=== PATIENT | female | born 2005 | race Caucasian/White ===

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

== ENCOUNTER 2024-07-15 05:32 | Day surgery (SDC) | payer BC, SELFPAY ==
[2024-07-13 11:56] LABS: Absolute Eosinophils 0.1 K/uL (0-0.5); Absolute Lymphocytes (CBC) 2.8 K/uL (0.7-4.9); Absolute Monocytes 0.5 K/uL (0.1-1.3); Absolute Neutrophil 6.6 K/uL (1.8-8.0); Basophils % 0.4 % (0-1.3); Eosinophils % 0.9 % (0-4.4); Hematocrit 38.4 % (36.0-45.0); Hemoglobin 13.5 g/dL (12.0-15.0); Lymphocytes % 27.7 % (15.3-44.8); MCH 30.1 pg (27.0-35.0); MCHC 35.2 g/dL (32.0-36.0); MCV 85.7 fL (80-100); MPV 7.7 fL (7.6-11.3); Monocytes % 5.3 % (3.3-12.3); Neutrophils % 65.7 % (41.7-73.7); Platelets 437 thou/uL (152-406); RBC Red Blood Cell Count 4.48 M/uL (3.86-4.86)
[2024-07-15] MEDS: Ringers Lactate 1,000 ML IV ONE (06:17)
[2024-07-15] MEDS ORDERED: LIDOCAINE 1% 20 ML MDV ONE (06:19)
[2024-07-15] MEDS ORDERED: propofoL 200 MG/20 ML VIAL IV ONE (06:48)
[2024-07-15] MEDS ORDERED: LIDOCAINE 2% MPF 5 ML VIAL ONE (06:48)
[2024-07-15] MEDS ORDERED: ONDANSETRON 4 MG/2 ML VIAL ONE (06:48)
[2024-07-15] MEDS ORDERED: FENTANYL CITR 100 MCG/2 ML ONE (06:49)
[2024-07-15] MEDS ORDERED: MIDAZOLAM HCL 2 MG/2 ML INJ ONE (06:49)
[2024-07-15] MEDS ORDERED: CEFAZOLIN SODIUM 1 GM/VIAL ONE ×2 (07:44→07:45)
[2024-07-15] MEDS: CEFAZOLIN SODIUM 1 GM/VIAL ONE (07:45)
[2024-07-15] MEDS: MEPERIDINE HCL 25 MG/ML SYR ONE (08:28)
[2024-07-15 08:43] VITALS: O2SAT 99
--- NOTE | 2024-07-15 09:55 | RAD REPORT ---
EXAMINATION: XR Foot Left 2 View CLINICAL INDICATION: Female, 19 years old. [facility] MAIN FOREIGN BODY REMOVAL TECHNIQUE: 2 view radiographs of the left foot were obtained. COMPARISON: No prior exam. FINDINGS: No evidence of fracture or dislocation. Normal alignment. No evidence of arthropathy or oth er focal bone lesion. Triangular radiodense foreign body along the soft tissues of the lateral forefoot at the level of the metatarsophalangeal articulation is seen on the initial image, with post surgical changes and no residual hyperdense foreign body on the subsequent image. No significant degenerative changes. IMPRESSION: Successful removal of radiodense foreign body along the lateral forefoot, with no residual hyperdense component.
[2024-07-15 10:11] VITALS: BP 104/88; TEMP 98.2
== END 2024-07-15 09:53 | disposition home or self-care (01) ==
LOC: OR 05:32
PROVIDERS: ATTEND Podiatrist Foot & Ankle Surgery
PROC: 0HXNXZZ Transfer Left Foot Skin, External Approach (ICD-10-PCS; 2024-07-15)
PROC: 0JCR0ZZ Extirpation of Matter from Left Foot Subcutaneous Tissue and Fascia, Open Approach (ICD-10-PCS; principal; 2024-07-15 07:00)
DX: S91.342A Puncture wound with foreign body, left foot, initial encounter (principal); M60.272 Foreign body granuloma of soft tissue, not elsewhere classified, left ankle and foot; M67.472 Ganglion, left ankle and foot
CPT/HCPCS: 36415; 80048; 85025; 87070; 87075; 87205; 88305; A6456; J0690; J2003; J2175; J2250; J2405; J2704; J3010; J7120

== ENCOUNTER 2024-12-23 17:02 | Emergency (ER) | payer BC, OTHER ==
--- OUTSIDE RECORDS SUMMARY | 2024-12-23 17:23 | XMS REPORT | Continuity of Care Document ---
Author Name Unknown Address [address] [facility] [place] [address] [facility] Address [address] [facility] [address] [place] [address] Care Team Providers Care Machine Silk Screen Printer Name Role Phone Melly Frias MD Primary Care Physician [phone] Trini Andujar Attending Clinician [phone] Unknown, Attending Attending Clinician Unavailab Sheila Mosqueda DPM Attending Clinician + [phone] SHEILA GUERRERO Attending Clinician Unavail able Noris Rutherford MA Attending Clinician UnavailCourtney France Attending Clinician [phone] COURTNEY CRAWFORD Attending Clinician Unavailable Bobbi Palomo RN Attending Clinician UnavailSTANLEY Neville Attending Clinician Unavailable Stanley Johnston DO Attending Clinician [phone] MAHIN ADWKINS Attending Clinician Unavailable Doctor Unassigned, [place] Attending Clinician U Melly Mattson MD Attending Clinician MELLY FRIAS Attending Clinician Unavailable Lab, Adc Fam Pob I Attending Clinician Unavailab JULIETTE Atkinson Attending Clinician Unavailable Provider, [facility] Attending Clinician Un available Juliette Verdin Attending Clinician [phone] Manjula France MA Attending Clinician Unavail able Only, Adc Test Attending Clinician Unavailable Surendra Norris MD Attending Clinician [phone] Rigo Hall MD Attending Clinician [phone] Unknown, Attending Attending Clinician Unavailab DOMINIC Nance Attending Clinician Unavaila STANLEY Man Admitting Clinician Unavailable Payers Payer Name Policy Type Policy Number Effective Date Expirati on Date Source [facility] [id number] 2013 00:00:00 [employer] [id number] 2021 00:00:00 Problems Condition Name Condition Details Condition Category Status Onset Date Resolution Date Last Treatment Date Treating Clinician Comments Source No known active problems No known active problems Disease [facility] Allergies, Adverse Reactions, Alerts Allergy Name Allergy Type Status Severity Reaction(s) Onset Date Inactive Date Treating Clinician Comments Source Red Dye #40 (Allura Red) Propensi ty to adverse reaction s Active 310 00:00: 00 Norman Barreto RED DYE DRUG INGREDI Active Hives 2022-04 00:00: 00 [facility] Red Dye Propensi ty to adverse reaction s Active Hives 2022-04 00:00: 00 [facility] NO KNOWN ALLERGIE S Drug Class Active [facility] Social History Social Habit Start Date Stop Date Quantity Comments Source Gender identity 2023-06-22 23:11:09 Identifies as female gender (finding) Norm Barreto ASSERTION Not [facility] History SDOH Alcohol Std Drinks [facility] History SDOH Alcohol Binge [facility] Sexual orientation Ly Barreto Alcoholic beverage intake 2024-12-21 00:00:00 2024-12-21 00:00:00 Lifetime non-drinker (finding) [facility] Alcohol intake 2023-03-14 00:00:00 2023-03-14 00:00:00 Lifetime non-drinker (finding) [facility] Exposure to SARS-CoV-2 (event) 2022-03-19 00:00:00 2022-03-29 13:19:00 Not sure [facility] History of Social function 2022-03-29 00:00:00 2022-03-29 00:00:00 [facility] Tobacco use and exposure 2022-03-29 00:00:00 2022-03-29 00:00:00 Smokeless tobacco non-user [facility] History SDOH Alcohol Frequency 2020-07-19 00:00:00 2020-07-19 00:00:00 1 [facility] Sex assigned at 2004 00:00:00 2005 00:00:00 [facility] Smoking Status Start Date Stop Date Source Tobacco smoking consumption unknown [facility] c Never smoked tobacco [facility] Medications Ordered Medication Name Filled Medication Name Start Date Stop Date Current Medication? Ordering Clinician Indication Dosage Frequency Signature (SIG) Comments Components Source dexAMETHaso ne (DECADRON) 10 mg/mL injection 10 mg 12-21 19:00: 00 12-21 18:31 :00 No [id number] 10mg 10 mg, Intramuscu lar, ONCE, 1 dose, On Sat12/21/24 at 1400, Routine [facility] ketorolac (TORADOL) 30 mg/mL (1 mL) injection 30 mg 12-21 19:00: 00 12-21 18:21 :00 No [id number] 30mg 30 mg, Intramuscu lar, ONCE, 1 dose, On Sat12/21/24 at 1400, Routine [facility] cephalexin (Keflex) 500 MG capsule cephalexin (Keflex) 500 MG capsule 19 00:00: 00 07-01 23:59 :00 No 500mg Q.5D Take 1 capsule by mouth in the morning and 1 capsule in the evening. Do all this for 14 days. Starting after surgery, to reduce the risk of postoperat lindsay infection. [facility] HYDROcodone -acetaminop hen ([place]) 10-325 MG tablet HYDROcodone -acetaminop hen ([place]) 10-325 MG tablet - 00:00: 00 06-24 23:59 :00 No [id number] 1{tbl} Q6H Take 1 tablet by mouth every 6 hours if needed for severe pain (7-10) for up to 7 days. Only take if needed for pain after surgery [facility] cephALEXin 500 mg capsule 2023-04- 00:00: 00 03-15 05:59 :00 No [id number] 500mg Take 1 capsule by mouth in the morning and 1 capsule at noon and 1 capsule in the evening. Do all this for 10 days. [facility] ketorolac (TORADOL) injection 15 mg 2022-04 06:00: 00 03-16 05:59 :00 No 15mg 15 mg, Slow IV Push, Q6H, 4 doses, First dose on Sat03/15/23 at 0000, Last dose on Sat03/15/23 at 1800, Routine [facility] NaCl 0.9% (NS) bolus infusion 1,000 mL 2022-04 02:45: 00 03-15 03:01 :00 No 1000mL at 999 mL/hr, 1,000 mL, IV Piggyback, ONCE, 1 dose, On [facility] 03/14/23 at 2045, STAT [facility] ondansetron (ZOFRAN (PF)) injection 4 mg 2022-04 01:45: 00 03-15 02:07 :00 No 4mg 4 mg, Slow IV Push, ONCE, 1 dose, On Sarahi 03/14/23 at 1945, Routine [facility] ibuprofen (ADVIL) 200 mg tablet 07-19 14:14: 53 Yes 200mg Take 200 mg by mouth every 6 (six) hours as needed. [facility] ibuprofen (ADVIL) 200 mg tablet 07-19 09:14: 53 Yes 200mg Take 200 mg by mouth every 6 (six) hours as needed. [facility] naproxen (NAPROSYN) 500 mg tablet 07-19 00:00: 00 Yes [id number] 500mg Take 1 tablet by mouth 2 (two) times daily with meals. [facility] fluticasone propionate 50 mcg/actuati on nasal spray 2018-04 00:00: 00 Yes [id number] 2{spray } Use 2 Sprays in each nostril daily. [facility] bromphenira mine-pseudo ephedrine-D M (BROMFED DM) 2-30-10 mg/5 mL syrup 2018-04 00:00: 00 Yes [id number] 5mL Take 5 mL by mouth 4 (four) times daily as needed for Congestion /Allergies or Cold symptoms. [facility] No known medications No Un kelli [facility] No known medications No Un kelli [facility] Immunizations Ordered Immunization Name Filled Immunization Name Date Status Comments Source Flu Injectable MDCK Quadrivalent 2022-01-08 00:00:00 Completed [facility] Flu Injectable MDCK Quadrivalent 2022-01-08 00:00:00 Completed [facility] Flu Injectable MDCK Quadrivalent 2022-01-08 00:00:00 Completed [facility] Flu Injectable MDCK Quadrivalent 2022-01-08 00:00:00 Completed Influenza Virus Vaccine Quad .5 mL IM 6+ MO 2021-01-20 00:00:00 Completed [facility] Influenza Virus Vaccine Quad .5 mL IM 6+ MO 2021-01-20 00:00:00 Completed [facility] Influenza Virus Vaccine Quad .5 mL IM 6+ MO 2021-01-20 00:00:00 Completed [facility] Influenza Virus Vaccine Quad .5 mL IM 6+ MO 2021-01-20 00:00:00 Completed [facility] Influenza Virus Vaccine Quad .5 mL IM 6+ MO (FLUZONE/FLULAVAL/FL UARIX) 2021-01-20 00:00:00 Completed Meningococcal Polysaccharide (groups A, C, Y and W-135) conjugate vaccine (MCV4P) 2020-07-19 00:00:00 Completed [facility] Meningococcal Polysaccharide (groups A, C, Y and W-135) conjugate vaccine (MCV4P) 2020-07-19 00:00:00 Completed [facility] Meningococcal Polysaccharide (groups A, C, Y and W-135) conjugate vaccine (MCV4P) 2020-07-19 00:00:00 Completed [facility] Meningococcal Polysaccharide (groups A, C, Y and W-135) conjugate vaccine (MCV4P) 2020-07-19 00:00:00 Completed [facility] Meningococcal Polysaccharide (groups A, C, Y and W-135) conjugate vaccine (MCV4P) 2020-07-19 00:00:00 Completed [facility] Meningococcal Polysaccharide (groups A, C, Y and W-135) conjugate vaccine (MCV4P) 2020-07-19 00:00:00 Completed [facility] Meningococcal Polysaccharide (groups A, C, Y and W-135) conjugate vaccine (MCV4P) 2020-07-19 00:00:00 Completed [facility] Meningococcal Polysaccharide (groups A, C, Y and W-135) conjugate vaccine (MCV4P) 2020-07-19 00:00:00 Completed [facility] Meningococcal Polysaccharide (groups A, C, Y and W-135) conjugate vaccine (MCV4P) 2020-07-19 00:00:00 Completed [facility] Influenza Virus Vaccine Quad IM, Preserv and ABX Free 6 MO-64 YRS 2019-01-11 00:00:00 Completed [facility] Influenza Virus Vaccine Quad IM, Preserv and ABX Free 6 MO-64 YRS 2019-01-11 00:00:00 Completed [facility] Influenza Virus Vaccine Quad IM, Preserv and ABX Free 6 MO-64 YRS 2019-01-11 00:00:00 Completed [facility] Influenza Virus Vaccine Quad IM, Preserv and ABX Free 6 MO-64 YRS 2019-01-11 00:00:00 Completed [facility] Influenza Virus Vaccine Quad IM, Preserv and ABX Free 6 MO-64 YRS (FLUCELVAX) 2019-01-11 00:00:00 Completed TDAP 2016-11-14 00:00:00 Completed [facility] Meningococcal Polysaccharide (groups A, C, Y and W-135) conjugate vaccine (MCV4P) 2016-11-14 00:00:00 Completed [facility] HPV9 2016-11-14 00:00:00 Completed [facility] TDAP 2016-11-14 00:00:00 Completed [facility] Meningococcal Polysaccharide (groups A, C, Y and W-135) conjugate vaccine (MCV4P) 2016-11-14 00:00:00 Completed [facility] HPV9 2016-11-14 00:00:00 Completed [facility] TDAP 2016-11-14 00:00:00 Completed [facility] Meningococcal Polysaccharide (groups A, C, Y and W-135) conjugate vaccine (MCV4P) 2016-11-14 00:00:00 Completed [facility] HPV9 2016-11-14 00:00:00 Completed [facility] TDAP 2016-11-14 00:00:00 Completed [facility] Meningococcal Polysaccharide (groups A, C, Y and W-135) conjugate vaccine (MCV4P) 2016-11-14 00:00:00 Completed [facility] HPV9 2016-11-14 00:00:00 Completed [facility] TDAP 2016-11-14 00:00:00 Completed Meningococcal Polysaccharide (groups A, C, Y and W-135) conjugate vaccine (MCV4P) 2016-11-14 00:00:00 Completed HPV9 2016-11-14 00:00:00 Completed Varicella (varivax)(chicken pox) 2009-11-16 00:00:00 Completed [facility] Varicella (varivax)(chicken pox) 2009-11-16 00:00:00 Completed [facility] Varicella (varivax)(chicken pox) 2009-11-16 00:00:00 Completed [facility] Varicella (varivax)(chicken pox) 2009-11-16 00:00:00 Completed [facility] Varicella (varivax)(chicken pox) 2009-11-16 00:00:00 Completed [facility] MMR 2008-10-13 00:00:00 Completed [facility] Pentacel (dtap,ipv,hib) 2008-10-13 00:00:00 Completed [facility] MMR 2008-10-13 00:00:00 Completed [facility] Pentacel (dtap,ipv,hib) 2008-10-13 00:00:00 Completed [facility] MMR 2008-10-13 00:00:00 Completed [facility] Pentacel (dtap,ipv,hib) 2008-10-13 00:00:00 Completed [facility] MMR 2008-10-13 00:00:00 Completed [facility] Pentacel (dtap,ipv,hib) 2008-10-13 00:00:00 Completed [facility] MMR 2008-10-13 00:00:00 Completed Pentacel (dtap,ipv,hib) 2008-10-13 00:00:00 Completed HEPATITIS A 2007-02-13 00:00:00 Completed [facility] HEPATITIS A 2007-02-13 00:00:00 Completed [facility] HEPATITIS A 2007-02-13 00:00:00 Completed [facility] HEPATITIS A 2007-02-13 00:00:00 Completed [facility] HEPATITIS A 2007-02-13 00:00:00 Completed Pneumococcal 7 Conjugate, PCV7 (Prevnar7) 2006-03-28 00:00:00 Completed [facility] MMR 2006-03-28 00:00:00 Completed [facility] HIB 4 Dose Schedule 2006-03-28 00:00:00 Completed [facility] HEPATITIS A 2006-03-28 00:00:00 Completed [facility] DTaP, Unspecified Formulation 2006-03-28 00:00:00 Completed [facility] Pneumococcal 7 Conjugate, PCV7 (Prevnar7) 2006-03-28 00:00:00 Completed [facility] MMR 2006-03-28 00:00:00 Completed [facility] HIB 4 Dose Schedule 2006-03-28 00:00:00 Completed [facility] HEPATITIS A 2006-03-28 00:00:00 Completed [facility] DTaP, Unspecified Formulation 2006-03-28 00:00:00 Completed [facility] Pneumococcal 7 Conjugate, PCV7 (Prevnar7) 2006-03-28 00:00:00 Completed [facility] MMR 2006-03-28 00:00:00 Completed [facility] HIB 4 Dose Schedule 2006-03-28 00:00:00 Completed [facility] HEPATITIS A 2006-03-28 00:00:00 Completed [facility] DTaP, Unspecified Formulation 2006-03-28 00:00:00 Completed [facility] Pneumococcal 7 Conjugate, PCV7 (Prevnar7) 2006-03-28 00:00:00 Completed [facility] MMR 2006-03-28 00:00:00 Completed [facility] HIB 4 Dose Schedule 2006-03-28 00:00:00 Completed [facility] HEPATITIS A 2006-03-28 00:00:00 Completed [facility] DTaP, Unspecified Formulation 2006-03-28 00:00:00 Completed [facility] Pneumococcal 7 Conjugate, PCV7 (Prevnar7) 2006-03-28 00:00:00 Completed MMR 2006-03-28 00:00:00 Completed HIB 4 Dose Schedule 2006-03-28 00:00:00 Completed HEPATITIS A 2006-03-28 00:00:00 Completed DTaP, Unspecified Formulation 2006-03-28 00:00:00 Completed Varicella (varivax)(chicken pox) 2005-08-01 00:00:00 Completed [facility] Varicella (varivax)(chicken pox) 2005-08-01 00:00:00 Completed [facility] Varicella (varivax)(chicken pox) 2005-08-01 00:00:00 Completed [facility] Varicella (varivax)(chicken pox) 2005-08-01 00:00:00 Completed [facility] Varicella (varivax)(chicken pox) 2005-08-01 00:00:00 Completed Pneumococcal 7 Conjugate, PCV7 (Prevnar7) 2005-01-17 00:00:00 Completed [facility] HIB 4 Dose Schedule 2005-01-17 00:00:00 Completed [facility] Pediarix (dtap/hep B/ipv) 2005-01-17 00:00:00 Completed [facility] Pneumococcal 7 Conjugate, PCV7 (Prevnar7) 2005-01-17 00:00:00 Completed [facility] HIB 4 Dose Schedule 2005-01-17 00:00:00 Completed [facility] Pediarix (dtap/hep B/ipv) 2005-01-17 00:00:00 Completed [facility] Pneumococcal 7 Conjugate, PCV7 (Prevnar7) 2005-01-17 00:00:00 Completed [facility] HIB 4 Dose Schedule 2005-01-17 00:00:00 Completed [facility] Pediarix (dtap/hep B/ipv) 2005-01-17 00:00:00 Completed [facility] Pneumococcal 7 Conjugate, PCV7 (Prevnar7) 2005-01-17 00:00:00 Completed [facility] HIB 4 Dose Schedule 2005-01-17 00:00:00 Completed [facility] Pediarix (dtap/hep B/ipv) 2005-01-17 00:00:00 Completed [facility] Pneumococcal 7 Conjugate, PCV7 (Prevnar7) 2005-01-17 00:00:00 Completed HIB 4 Dose Schedule 2005-01-17 00:00:00 Completed Pediarix (dtap/hep B/ipv) 2005-01-17 00:00:00 Completed Pneumococcal 7 Conjugate, PCV7 (Prevnar7) 2004 00:00:00 Completed [facility] HIB 4 Dose Schedule 2004 00:00:00 Completed [facility] Pediarix (dtap/hep B/ipv) 2004 00:00:00 Completed [facility] Pneumococcal 7 Conjugate, PCV7 (Prevnar7) 2004 00:00:00 Completed [facility] HIB 4 Dose Schedule 2004 00:00:00 Completed [facility] Pediarix (dtap/hep B/ipv) 2004 00:00:00 Completed [facility] Pneumococcal 7 Conjugate, PCV7 (Prevnar7) 2004 00:00:00 Completed [facility] HIB 4 Dose Schedule 2004 00:00:00 Completed [facility] Pediarix (dtap/hep B/ipv) 2004 00:00:00 Completed [facility] Pneumococcal 7 Conjugate, PCV7 (Prevnar7) 2004 00:00:00 Completed [facility] HIB 4 Dose Schedule 2004 00:00:00 Completed [facility] Pediarix (dtap/hep B/ipv) 2004 00:00:00 Completed [facility] Pneumococcal 7 Conjugate, PCV7 (Prevnar7) 2004 00:00:00 Completed HIB 4 Dose Schedule 2004 00:00:00 Completed Pediarix (dtap/hep B/ipv) 2004 00:00:00 Completed Pneumococcal 7 Conjugate, PCV7 (Prevnar7) 2004 00:00:00 Completed [facility] HIB 4 Dose Schedule 2004 00:00:00 Completed [facility] Pediarix (dtap/hep B/ipv) 2004 00:00:00 Completed [facility] Pneumococcal 7 Conjugate, PCV7 (Prevnar7) 2004 00:00:00 Completed [facility] HIB 4 Dose Schedule 2004 00:00:00 Completed [facility] Pediarix (dtap/hep B/ipv) 2004 00:00:00 Completed [facility] Pneumococcal 7 Conjugate, PCV7 (Prevnar7) 2004 00:00:00 Completed [facility] HIB 4 Dose Schedule 2004 00:00:00 Completed [facility] Pediarix (dtap/hep B/ipv) 2004 00:00:00 Completed [facility] Pneumococcal 7 Conjugate, PCV7 (Prevnar7) 2004 00:00:00 Completed [facility] HIB 4 Dose Schedule 2004 00:00:00 Completed [facility] Pediarix (dtap/hep B/ipv) 2004 00:00:00 Completed [facility] Pneumococcal 7 Conjugate, PCV7 (Prevnar7) 2004 00:00:00 Completed HIB 4 Dose Schedule 2004 00:00:00 Completed Pediarix (dtap/hep B/ipv) 2004 00:00:00 Completed Meningococcal Polysaccharide (groups A, C, Y and W-135) conjugate vaccine (MCV4P) Unknown Completed [facility] Varicella (varivax)(chicken pox) Unknown Completed [facility] TDAP Unknown Completed [facility] Pneumococcal 7 Conjugate, PCV7 (Prevnar7) Unknown Completed [facility] MMR Unknown Completed [facility] HPV9 Unknown Completed [facility] HIB 4 Dose Schedule Unknown Completed [facility] HEPATITIS A Unknown Completed [facility] Influenza Virus Vaccine Quad .5 mL IM 6+ MO (FLUZONE/FLULAVAL/FL UARIX) Unknown Completed [facility] Flu Injectable MDCK Quadrivalent Unknown Completed [facility] Influenza Virus Vaccine Quad IM, Preserv and ABX Free 6 MO-64 YRS (FLUCELVAX) Unknown Completed [facility] Pentacel (dtap,ipv,hib) Unknown Completed [facility] Pediarix (dtap/hep B/ipv) Unknown Completed [facility] DTaP, Unspecified Formulation Unknown Completed [facility] Vital Signs Vital Name Observation Time Observation Value Comments S ource Systolic blood pressure 2024-12-21 17:45:00 122 mm[Hg] [facility] Diastolic blood pressure 2024-12-21 17:45:00 82 mm[Hg] [facility] Heart rate 2024-12-21 17:43:00 95 /min [facility] Body temperature 2024-12-21 17:43:00 36.83 Coleen [facility] Body height 2024-12-21 17:43:00 167.6 cm [facility] Body weight 2024-12-21 17:43:00 92.443 kg [facility] BMI 2024-12-21 17:43:00 32.89 kg/m2 [facility] Oxygen saturation in Arterial blood by Pulse oximetry 2024-12-21 17:43:00 97 /min [facility] Systolic blood pressure 2024-03-04 23:10:00 127 mm[Hg] [facility] Diastolic blood pressure 2024-03-04 23:10:00 75 mm[Hg] [facility] Heart rate 2024-03-04 23:10:00 89 /min [facility] Body temperature 2024-03-04 23:10:00 36.78 Coleen [facility] Body height 2024-03-04 23:10:00 167.6 cm [facility] Body weight 2024-03-04 23:10:00 92.126 kg [facility] BMI 2024-03-04 23:10:00 32.78 kg/m2 [facility] Oxygen saturation in Arterial blood by Pulse oximetry 2024-03-04 23:10:00 98 /min [facility] Systolic blood pressure 2023-03-15 03:02:00 127 mm[Hg] [facility] Diastolic blood pressure 2023-03-15 03:02:00 88 mm[Hg] [facility] Heart rate 2023-03-15 03:02:00 85 /min [facility] Respiratory rate 2023-03-15 03:02:00 18 /min [facility] Oxygen saturation in Arterial blood by Pulse oximetry 2023-03-15 03:02:00 100 /min [facility] Body temperature 2023-03-15 01:35:00 37.83 Coleen [facility] Body height 2023-03-15 01:35:00 167.6 cm [facility] Body weight 2023-03-15 01:35:00 79.379 kg [facility] BMI 2023-03-15 01:35:00 28.25 kg/m2 [facility] Body mass index (BMI) [Percentile] Per age and sex 2023-03-15 01:35:00 91.48 % [facility] Systolic blood pressure 2022-03-29 19:19:00 115 mm[Hg] [facility] Diastolic blood pressure 2022-03-29 19:19:00 77 mm[Hg] [facility] Heart rate 2022-03-29 19:19:00 54 /min [facility] Body height 2022-03-29 19:19:00 167.6 cm [facility] Body weight 2022-03-29 19:19:00 80.65 kg [facility] BMI 2022-03-29 19:19:00 28.70 kg/m2 [facility] Body mass index (BMI) [Percentile] Per age and sex 2022-03-29 19:19:00 93.21 % [facility] Oxygen saturation in Arterial blood by Pulse oximetry 2022-03-29 19:19:00 100 /min [facility] Systolic blood pressure 2020-08-10 13:58:00 92 mm[Hg] [facility] Diastolic blood pressure 2020-08-10 13:58:00 68 mm[Hg] [facility] Heart rate 2020-08-10 13:58:00 76 /min [facility] Body height 2020-08-10 13:58:00 165.1 cm [facility] Body weight 2020-08-10 13:58:00 82.373 kg [facility] BMI 2020-08-10 13:58:00 30.22 kg/m2 [facility] Oxygen saturation in Arterial blood by Pulse oximetry 2020-08-10 13:58:00 99 /min [facility] Systolic blood pressure 2020-07-19 14:04:00 102 mm[Hg] [facility] Diastolic blood pressure 2020-07-19 14:04:00 60 mm[Hg] [facility] Heart rate 2020-07-19 14:04:00 78 /min [facility] Body weight 2020-07-19 14:04:00 83.008 kg [facility] Oxygen saturation in Arterial blood by Pulse oximetry 2020-07-19 14:04:00 99 /min [facility] Systolic blood pressure 2020-06-23 20:59:00 117 mm[Hg] [facility] Diastolic blood pressure 2020-06-23 20:59:00 78 mm[Hg] [facility] Heart rate 2020-06-23 20:59:00 71 /min [facility] Body temperature 2020-06-23 20:59:00 37.17 Coleen [facility] Respiratory rate 2020-06-23 20:59:00 18 /min [facility] Body height 2020-06-23 20:59:00 165.1 cm [facility] Body weight 2020-06-23 20:59:00 80.74 kg [facility] BMI 2020-06-23 20:59:00 29.62 kg/m2 [facility] Oxygen saturation in Arterial blood by Pulse oximetry 2020-06-23 20:59:00 98 /min [facility] Systolic blood pressure 2018-11-29 17:47:00 124 mm[Hg] [facility] Diastolic blood pressure 2018-11-29 17:47:00 74 mm[Hg] [facility] Heart rate 2018-11-29 17:47:00 79 /min [facility] Body temperature 2018-11-29 17:47:00 36.44 Coleen [facility] Respiratory rate 2018-11-29 17:47:00 17 /min [facility] Body height 2018-11-29 17:47:00 162.6 cm [facility] Body weight 2018-11-29 17:47:00 73.12 kg [facility] BMI 2018-11-29 17:47:00 27.67 kg/m2 [facility] Oxygen saturation in Arterial blood by Pulse oximetry 2018-11-29 17:47:00 100 /min [facility] Systolic blood pressure 2018-11-29 17:47:00 124 mm[Hg] [facility] Diastolic blood pressure 2018-11-29 17:47:00 74 mm[Hg] [facility] Heart rate 2018-11-29 17:47:00 79 /min [facility] Body temperature 2018-11-29 17:47:00 36.44 Coleen [facility] Respiratory rate 2018-11-29 17:47:00 17 /min [facility] Body height 2018-11-29 17:47:00 162.6 cm [facility] Body weight 2018-11-29 17:47:00 73.12 kg [facility] BMI 2018-11-29 17:47:00 27.67 kg/m2 [facility] Oxygen saturation in Arterial blood by Pulse oximetry 2018-11-29 17:47:00 100 /min [facility] Procedures Procedure Date / Time Performed Performing Clinician Source HCG TOTAL (QUANTITATIVE) 2024-06-08 11:16:00 Tee Guerrero [facility] COMP. METABOLIC PANEL (34047) 2023-03-15 02:02:00 Stanley Johnston [facility] CBC WITH DIFF 2023-03-15 02:02:00 Stanley Johnston [facility] POCT TEST 2023-03-15 01:49:00 Sandy Johnston [facility] URINALYSIS 2023-03-15 01:48[facility] 2023-03-15 01:21:58 Doctor Unassigned, Ripley [facility] INSURANCE CORRESPONDENCE 2022-04-28 06:01:00 Doc tor Unassigned, Ripley [facility] CONSENT/REFUSAL FOR DIAGNOSIS AND TREATMENT 2022-03-29 19:22:00 Doctor Unassigned, Ripley [facility] MEDICATION CORRESPONDENCE 2021-04-12 06:01:00 Do ctor Unassigned, Ripley [facility] XR WRIST 3+ VW RIGHT 2020-07-19 15:19:[address] [facility] MENACTRA (MCV4-D) VACCINE 2020-07-19 14:37:58 Melly Frias [facility] ASSIGNMENT OF BENEFITS 2020-01-25 13:19:45 Docto r Unassigned, Ripley [facility] CONSENT/REFUSAL FOR DIAGNOSIS AND TREATMENT 2018-11-29 17:29:33 Doctor Unassigned, Ripley [facility] Encounters Start Date/Time End Date/Time Encounter Type Admission Type Attending [facility] Care Facility Care Department Encounter ID Source 2024-12-21 12:00:00 2024-12-21 13:31:12 Urgent Care R Trini Napier Unknown, Attending [facility] 1.2.840.114 350.1.13.10 4.2.7.2.686 [id number] [facility] 2024-08-26 14:30:00 2024-08-26 15:39:02 Office Visit Selbst, Sheila [facility] 1.2.840.114 350.1.13.70 8.2.7.2.686 [id number] [facility] 2024-08-26 14:13:52 2024-08-26 15:39:02 Outpatient Elective SELBST, SHEILA MONTEIRO MHEOUT [id number] EOUT 2024-07-07 00:00:00 2024-08-07 23:53:31 Telephone Rutherford, Noris Rutherford, Noris [facility] 1.2.840.114 350.1.13.70 8.2.7.2.686 [id number] [facility] 2024-07-29 11:20:00 2024-07-29 12:09:48 Office Visit Selbst, Sheila [facility] 1.2.840.114 350.1.13.70 8.2.7.2.686 [id number] [facility] 2024-07-29 10:44:39 2024-07-29 12:09:48 Outpatient Elective SELBST, SHEILA MONTEIRO EOUT [id number] [facility] 2024-07-22 10:18:49 2024-07-22 11:14:22 Outpatient Elective SELBST, SHEILA MONTEIRO MHEOUT [id number] EOUT 2024-07-22 10:20:00 2024-07-22 10:30:00 Office Visit SelbstSheila [facility] 1.2.840.114 350.1.13.70 8.2.7.2.686 [id number] [facility] 2024-07-15 08:15:37 2024-07-15 08:15:47 Outpatient Elective SELBST, SHEILA GRECOOUT MHEOUT [id number] EOUT 2024-07-15 07:00:00 2024-07-15 08:15:47 Outside Procedure SelnhantSheila [facility] 1.20.114 350.1.13.70 8.2.7.2.686 [id number] [facility] 2024-06-17 11:00:29 2024-06-17 12:14:08 Outpatient Elective [facility]EL[facility]STSHEIL[facility] [id number] [facility] 2024-06-17 11:00:00 2024-06-17 11:10:00 Office Visit YolandaSheila [facility] 1.0.114 350.1.13.70 8.2.7.2.686 [id number] [facility] 2024-06-08 00:00:00 2024-06-09 01:27:49 Orders Only Micheal Guerreroian Ron [facility] 1.114 350.1.13.70 8.2.7.2.686 [id number] [facility] 2024-06-08 09:50:00 2024-06-08 10:41:14 Consult YolandaSheila [facility] 1.2840.114 350.1.13.70 8.2.7.2.686 [id number] [facility] 2024-06-08 09:27:37 2024-06-08 10:41:14 Outpatient Elective SELBSTSHEILA HARJINDER MHEOUT [id number] [facility] 2024-03-04 16:20:00 2024-03-04 16:40:00 Urgent Care Courtney Crawford Unknown, Attending [facility] 1.84.114 350.1.13.10 4.2.7.2.686 [id number] [facility] 2024-03-04 16:20:00 2024-03-04 16:20:00 Outpatient R COURTNEY CRAWFORD [facility] [id number] [facility] 2024-03-04 00:00:00 2024-03-04 11:51:32 Nurse Triage Bobbi Palomo Wendy [facility] 1.840.114 350.1.13.10 4.2.7.2.686 [id number] [facility] 2023-03-14 19:37:00 2023-03-14 21:22:00 Emergency X SINGER STANLEY [facility] ERT [id number] [facility] 2023-03-14 19:37:00 2023-03-14 21:22:00 Emergency Stanley Johnston [facility] 1.840.114 350.1.13.10 4.2.7.2.686 [id number] [facility] 2022-04-28 00:00:00 2022-04-28 00:00:00 Orders Only Doctor Unassigned, Ripley [facility] 1.2840.114 350.1.13.10 4.2.7.2.686 [id number] [facility] 2022-03-29 13:30:00 2022-03-29 13:45:00 Office Visit Melly Frias [facility] 1.2840.114 350.1.13.10 4.2.7.2.686 [id number] [facility] 2022-03-29 13:30:00 2022-03-29 13:30:00 Outpatient R MELLY FRIAS [facility] [id number] [facility] 2022-03-29 00:00:00 2022-03-29 00:00:00 Orders Only Doctor Unassigned, [place]y [facility] 1.2.840.114 350.1.13.10 4.2.7.2.686 [id number] [facility] 2021-04-12 00:00:00 2021-04-12 00:00:00 Orders Only Doctor Unassigned, [place]ipley [facility] 1.2.840.114 350.1.13.10 4.2.7.2.686 [id number] [facility] 2020-08-10 09:23:22 2020-08-10 09:43:22 Lens Polisher Hand Visit Lab, Adc [facility] Pob I Daniel [facility] Office Building One 1.2840.114 350.1.13.10 4.2.7.2.686 [id number] [facility] 2020-08-10 08:36:09 2020-08-10 09:06:09 Office Visit Melly Frias [facility] Office Building One 1.2840.114 350.1.13.10 4.2.7.2.686 [id number] [facility] 2020-08-10 09:00:00 2020-08-10 09:00:00 Outpatient MELLY COOLEY [facility] [id number] [facility] 2020-07-19 10:03:41 2020-07-19 23:59:00 Hospital Encounter Melly Frias [facility] 1.2840.114 350.1.13.10 4.2.7.2.686 [id number] [facility] 2020-07-19 09:30:00 2020-07-19 09:30:00 Outpatient MELLY COOLEY [facility] [id number] [facility] 2020-07-19 09:00:14 2020-07-19 09:15:14 Office Visit Daniel [facility] 1..114 350.1.13.10 4.2.7.2.686 [id number] [facility] 2020-07-11 00:00:00 2020-07-11 00:00:00 Telephone Melly Frias [facility] Office [facility] 1.0.114 350.1.13.10 4.2.7.2.686 [id number] [facility] 2020-06-23 16:20:00 2020-06-23 16:20:00 Outpatient R JULIETTE CROWELL [facility] [id number] [facility] 2020-06-23 15:46:09 2020-06-23 16:16:49 Urgent Care Provider, [facility] Urgent Care Juliette Crowell [facility] Office [facility] One .114 350.1.13.10 4.2.7.2.686 [id number] [facility] 2020-01-30 00:00:00 2020-01-30 00:00:00 Letter (Out) Manjula France [facility] Office [facility] One 1..114 350.1.13.10 4.2.7.2.686 [id number] [facility] 2020-01-30 00:00:00 2020-01-30 00:00:00 Letter (Out) Manjula France [facility] Office Building One ..114 350.1.13.10 4.2.7.2.686 [id number] 2020-01-25 08:22:42 2020-01-25 08:37:42 Laboratory Only Only, Adc Test Surendra Norris [facility] 1.0.114 350.1.13.10 4.2.7.2.686 [id number] [facility] 2020-01-25 08:22:42 2020-01-25 08:37:42 Laboratory Only Only, Adc Test [facility] 1.2.840.114 350.1.13.10 4.2.7.2.686 [id number] 2020-01-25 08:15:00 2020-01-25 08:15:00 Outpatient R [facility] [id number] [facility] 2020-01-25 00:00:00 2020-01-25 00:00:00 Orders Only Doctor Unassigned, Ripley [facility] 1.2.840.114 350.1.13.10 4.2.7.2.686 [id number] [facility] 2020-01-25 00:00:00 2020-01-25 00:00:00 Orders Only Doctor Unassigned, [place]ipley [facility] 1.2.840.114 350.1.13.10 4.2.7.2.686 [id number] 2018-11-29 12:31:00 2018-11-29 12:46:00 Urgent Care Rigo Hall E Unknown, Attending [facility] 1.2.840.114 350.1.13.10 4.2.7.2.686 [id number] [facility] 2018-11-29 12:31:00 2018-11-29 12:46:00 Urgent Care Rigo Hall [facility] 1.2.840.114 350.1.13.10 4.2.7.2.686 [id number] 2018-11-29 00:00:00 2018-11-29 00:00:00 Orders Only Doctor Unassigned, [place]ipley [facility] 1.2.840.114 350.1.13.10 4.2.7.2.686 [id number] [facility] 2018-11-29 00:00:00 2018-11-29 00:00:00 Orders Only Doctor Unassigned, [place]y [facility] 1.2.840.114 350.1.13.10 4.2.7.2.686 [id number] 2013-12-21 20:48:17 2013-12-21 22:11:00 Emergency X DOMINIC STALLWORTH [facility] [id number] [facility] Results Test Description Test Time Test Comments Results Resul t Comments Source HCG TOTAL (QUANTITATIVE) 2024-06-09 01:26:19 hCG Tot<5mIU/mL2024 1:21 AM CDTQUEST [facility]AG[facility] [id number] 02:29:27* Test Item Value Reference Range Interpretation Comme nts WBC (test code = 6690-2) 11.09 See_Comment [Automated messa ge] The system which generated this result transmitted reference range: 4.50 - 13.50 10*3/?L. The reference range was not used to interpret this result as normal/abnormal. RBC (test code = 789-8) 4.34 See_Comment [Automated messa ge] The system which generated this result transmitted reference range: 4.10 - 5.10 10*6/?L. The reference range was not used to interpret this result as normal/abnormal. HGB (test code = 718-7) 13.3 g/dL 12.0-16.0 HCT (test code = 4544-3) 39.4 % 36.0-45.0 MCV (test code = 787-2) 90.8 fL 78.0-95.0 MCH (test code = 785-6) 30.6 pg 26.0-32.0 MCHC (test code = 786-4) 33.8 g/dL 32.0-36.0 RDW-SD (test code = 68807-0) 41.0 fL 38.5-49.0 RDW-CV (test code = 788-0) 12.2 % 11.5-14.0 PLT (test code = 777-3) 405 See_Comment H [Automated messa ge] The system which generated this result transmitted reference range: 135 - 361 10*3/?L. The reference range was not used to interpret this result as normal/abnormal. MPV (test code = 84911-3) 9.5 fL 9.4-13.3 NRBC/100 WBC (test code = 1037472912) 0.0 See_Comment [Automated me ssage] The system which generated this result transmitted reference range: 0.0 - 10.0 /100 WBCs. The reference range was not used to interpret this result as normal/abnormal. NRBC x10^3 (test code = 1868437137) See_Comment [Automated messa ge] The system which generated this result transmitted reference range: 10*3/?L. The reference range was not used to interpret this result as normal/abnormal. GRAN MAT (NEUT) % (test code = 770-8) 72.3 % IMM GRAN % (test code = 3150505750) 0.30 % LYMPH % (test code = 736-9) 21.2 % MONO % (test code = 5905-5) 5.2 % EOS % (test code = 713-8) 0.6 % BASO % (test code = 706-2) 0.4 % GRAN MAT x10^3(ANC) (test code = 1384668460) 8.02 10*3/uL 1.50-10.30 IMM GRAN x10^3 (test code = 8727291044) 0.03 10*3/uL 0.00-0.06 LYMPH x10^3 (test code = 731-0) 2.35 10*3/uL 0.70-7.40 MONO x10^3 (test code = 742-7) 0.58 10*3/uL 0.00-0.50 H EOS x10^3 (test code = 711-2) 0.07 10*3/uL 0.00-0.40 BASO x10^3 (test code = 704-7) 0.04 10*3/uL 0.00-0.10 Lab Interpretation (test code = 95644-7) Abnormal [facility] [id number] 01:49:00* Test Item Value Reference Range Interpretation Comme nts POCT PREG (test code = 1605) Negative On board controls acceptable with C Line (test code = 3574) Yes POCT PREG LOT # (test code = 3575) [id number] POCT PREG TEST DATE ( test code = 3576) 06/09/2024 Lab Interpretation (test cod e = 94342-0) [facility] VW [id number] 15:22:41 HISTORY: ?Pain. FINDINGS: AP, lateral, oblique views of right wrist showed no acutefracture or dislocation. No significant changes of arthritis or aggressivebone lesions seen. CONCLUSIONS: No acute fracture or dislocation in right wrist. [facility], Radiant Results Inft User - 07/19/2020 10:23 AM CDTHISTORY: Pain.FINDINGS: AP, lateral, oblique views of right wrist showed no acutefracture or dislocation. 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 Patient denies nausea, vomiting, fever, chills, cough, shortness of breath, chest pain, and calf pain PHYSICAL EXAM OF LOWER EXTREMITY: Vascular: (-) edema, BILATERAL lower extremity (-) ecchymosis (-) erythema (+) 2/4 pedal pulses, bilateral (+) Capillary Refill time: within normal limits (-) varicosities (+) pedal hair growth Neurological: (+) sensation with 5.07 [place] Ethel monofilament examination to the most distal lower extremity (-) tinel's sign (-) clonus present. Dermatological: (+) sutures intact, (+) skin margins well aligned after suture removed (-) signs of infection, (-) open wounds, (-) macerations, (-) ischemic tissue, (-) abscess, (-) drainage, (-) mal odor (-) other primary or secondary lesions (+) normal temperature when compared to contralateral limb (+) normal color, tugor, and elasticity. Musculoskeletal: (+) good visual correction from surgical procedure (-) pain on palpation at the surgical site, 5/5 muscle strength to extrinsic pedal muscle groups (-) evidence of compartment syndrome, (-) evidence of deep vein thrombosis Culture left foot 07/15/2024: (-) growth ASSESSMENT: S/P LEFT 5TH METATARSAL HEAD FOREIGN BODY EXTRACTION, JULY 15, 2024 TREATMENT PLAN: - Extensive visit WITH BOYFRIEND discussing possible post-op complications - surgical site healing as expected - antibiotics - continue as directed - Pain - Well controlled - Wound - apply vitamin-E for scar reduction -suture- removed 07/29/2024 without complications, thus no further bandage indicated - culture - reviewed - pathology-PENDING - Dressing - instructions provided - Weight bearing - as tolerated in well protective shoes - DVT prophylaxis - AGAIN educated about non-weight bearing exercises - work-no further restrictions, may return as needed - Return if needed Patient advised to report to my clinic or the emergency room immediately with any questions or concerns. Discussion: A detailed discussion was provided to the patient with specific reference to etiology, pathology, alternate treatment options, and prognosis. All risks and complications (including side effects) with each treatment/medication alternative were outlined in detail including but not limited to: Pain, swelling, numbness, loss of function, loss of limb, bleeding, hematoma, scarring, failure to relieve condition, surgery, additional/revisional surgery, reflex sympathetic dystrophy, complex regional pain syndrome, reoccurrence of deformity, joint stiffness, flail toe, bone and/or soft tissue infection, blood clots, pulmonary embolism, possible , delayed or non-healing. X-rays, graphs and drawings were all used to assist with patient comprehension when appropriate. All patients questions were answered and stated they fully understood. No guarantee as to results or outcome of treatment was made. I have discussed with the patient or legally responsible person prior to obtaining consent: the risks, potential benefits and drawbacks, significant alternatives, potential for problems related to recuperation, likelihood of success, and possible results of non-treatment, and the patient or thelegally responsible person has agreed to proceed. 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 Patient denies nausea, vomiting, fever, chills, cough, shortness of breath, chest pain, and calf pain PHYSICAL EXAM OF LOWER EXTREMITY: Vascular: (-) edema, BILATERAL lower extremity (-) ecchymosis (-) erythema (+) 2/4 pedal pulses, bilateral (+) Capillary Refill time: within normal limits (-) varicosities (+) pedal hair growth Neurological: (+) sensation with 5.07 [place] Ethel monofilament examination to the most distal lower extremity (-) tinel's sign (-) clonus present. Dermatological: (+) sutures intact, (+) skin margins well aligned after suture removed (-) signs of infection, (-) open wounds, (-) macerations, (-) ischemic tissue, (-) abscess, (-) drainage, (-) mal odor (-) other primary or secondary lesions (+) normal temperature when compared to contralateral limb (+) normal color, tugor, and elasticity. Musculoskeletal: (+) good visual correction from surgical procedure (-) pain on palpation at the surgical site, 5/5 muscle strength to extrinsic pedal muscle groups (-) evidence of compartment syndrome, (-) evidence of deep vein thrombosis Culture left foot 07/15/2024: (-) growth ASSESSMENT: S/P LEFT 5TH METATARSAL HEAD FOREIGN BODY EXTRACTION, JULY 15, 2024 TREATMENT PLAN: - Extensive visit WITH BOYFRIEND discussing possible post-op complications - surgical site healing as expected - antibiotics - continue as directed - Pain - Well controlled - Wound - apply vitamin-E for scar reduction -suture- removed 07/29/2024 without complications, thus no further bandage indicated - culture - reviewed - pathology-PENDING - Dressing - instructions provided - Weight bearing - as tolerated in well protective shoes - DVT prophylaxis - AGAIN educated about non-weight bearing exercises - work-no further restrictions, may return as needed - Return if needed Patient advised to report to my clinic or the emergency room immediately with any questions or concerns. Discussion: A detailed discussion was provided to the patient with specific reference to etiology, pathology, alternate treatment options, and prognosis. All risks and complications (including side effects) with each treatment/medication alternative were outlined in detail including but not limited to: Pain, swelling, numbness, loss of function, loss of limb, bleeding, hematoma, scarring, failure to relieve condition, surgery, additional/revisional surgery, reflex sympathetic dystrophy, complex regional pain syndrome, reoccurrence of deformity, joint stiffness, flail toe, bone and/or soft tissue infection, blood clots, pulmonary embolism, possible , delayed or non-healing. X-rays, graphs and drawings were all used to assist with patient comprehension when appropriate. All patients questions were answered and stated they fully understood. No guarantee as to results or outcome of treatment was made. I have discussed with the patient or legally responsible person prior to obtaining consent: the risks, potential benefits and drawbacks, significant alternatives, potential for problems related to recuperation, likelihood of success, and possible results of non-treatment, and the patient or thelegally responsible person has agreed to proceed. Erlinda [facility]678[facility]38[facility]04 16:02:40 [facility]qmzepk4632-03-87 16:02:40 Diagnosis Abnormal foot finding - Prim [facility] 23:57:22Upcoming Encounters Health Maintenance Due Date Last Done Comments HPV Vaccines (2 - 2-dose series) 05/17/2017 11/14/2016 Annual Physical 08/10/2021 08/10/2020 Influenza Vaccine (Season Ended) 2024 01/20/2021, 01/11/2019 DTaP/Tdap/Td Vaccines (7 - Td or Tdap) 11/14/2026 11/14/2016, 10/13/2008, 03/28/2006, Additional history exists Respiratory Syncytial Virus (RSV) Adult Series (1 - 1-dose 75+ series) 07/13/2079 Hepatitis B Vaccines Completed 01/17/2005, 2004, 2004 Pneumococcal Vaccine: Pediatrics (0 to 5 Years) and At-Risk Patients (6 to 64 Years) Aged Out 03/28/2006, 01/17/2005, 2004, Additional history exists No longer eligible based on patient's age to complete this topic Hepatitis A Vaccines Completed 02/13/2007, 03/28/20 HIB Vaccines Completed 10/13/2008, 03/02, 01/17/2005, Additional history exists IPV Vaccines Completed 10/13/2008, 12/30, 2004, Additional history exists Varicella Vaccines Completed 11/16/2009, 08/01/2005 Meningococcal Vaccine Completed 07/19/2020, 017 Rotavirus Vaccines Aged Out No longer eligible based on patient's age to complete this topic [id number] 12:11:47* Sheila Guerrero, ELISE - 07/29/2024 11:20 AM CDT CHIEF COMPLAINT S/P LEFT 5TH METATARSAL HEAD FOREIGN BODY EXTRACTION, JULY 15, 2024 HISTORY OF PRESENT ILLNESS: Patient states pain is well controlled without medication Patient has been taking antibiotics 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 Patient denies nausea, vomiting, fever, chills, cough, shortness of breath, chest pain, and calf pain PHYSICAL EXAM OF LOWER EXTREMITY: Vascular: (-) edema, BILATERAL lower extremity (-) ecchymosis (-) erythema (+) 2/4 pedal pulses, bilateral (+) Capillary Refill time: within normal limits (-) varicosities (+) pedal hair growth Neurological: (+) sensation with 5.07 [place] Ethel monofilament examination to the most distal lower extremity (-) tinel's sign (-) clonus present. Dermatological: (+) sutures intact, (+) skin margins well aligned after suture removed (-) signs of infection, (-) open wounds, (-) macerations, (-) ischemic tissue, (-) abscess, (-) drainage, (-) mal odor (-) other primary or secondary lesions (+) normal temperature when compared to contralateral limb (+) normal color, tugor, and elasticity. Musculoskeletal: (+) good visual correction from surgical procedure (-) pain on palpation at the surgical site, 5/5 muscle strength to extrinsic pedal muscle groups (-) evidence of compartment syndrome, (-) evidence of deep vein thrombosis ASSESSMENT: S/P LEFT 5TH METATARSAL HEAD FOREIGN BODY EXTRACTION, JULY 15, 2024 TREATMENT PLAN: - Extensive visit WITH BOYFRIEND discussing possible post-op complications - surgical site healing as expected - antibiotics - continue as directed - Pain - Well controlled - Wound - apply vitamin-E for scar reduction -suture- removed 07/29/2024 without complications, thus no further bandage indicated - culture- pending results - pathology-pending results - Dressing - instructions provided - Weight bearing - as tolerated in well protective shoes - DVT prophylaxis - AGAIN educated about non-weight bearing exercises - work-no further restrictions, may return as needed - Return 4 weeks for routine surgical postop eval Patient advised to report to my clinic or the emergency room immediately with any questions or concerns. Discussion: A detailed discussion was provided to the patient with specific reference to etiology, pathology, alternate treatment options, and prognosis. All risks and complications (including side effects) with each treatment/medication alternative were outlined in detail including but not limited to: Pain, swelling, numbness, loss of function, loss of limb, bleeding, hematoma, scarring, failure to relieve condition, surgery, additional/revisional surgery, reflex sympathetic dystrophy, complex regional pain syndrome, reoccurrence of deformity, joint stiffness, flail toe, bone and/or soft tissue infection, blood clots, pulmonary embolism, possible , delayed or non-healing. X-rays, graphs and drawings were all used to assist with patient comprehension when appropriate. All patients questions were answered and stated they fully understood. No guarantee as to results or outcome of treatment was made. I have discussed with the patient or legally responsible person prior to obtaining consent: the risks, potential benefits and drawbacks, significant alternatives, potential for problems related to recuperation, likelihood of success, and possible results of non-treatment, and the patient or thelegally responsible person has agreed to proceed. [facility]Vdpetiv1835[facility]46-94 12:11:47Upcoming Encounters Health Maintenance Due Date Last Done Comments HPV Vaccines (2 - 2-dose series) 05/17/2017 11/14/2016 Annual Physical 08/10/2021 08/10/2020 Influenza Vaccine (Season Ended) 2024 01/20/2021, 01/11/2019 DTaP/Tdap/Td Vaccines (7 - Td or Tdap) 11/14/2026 11/14/2016, 10/13/2008, 03/28/2006, Additional history exists Respiratory Syncytial Virus (RSV) Adult Series (1 - 1-dose 75+ series) 07/13/2079 Hepatitis B Vaccines Completed 01/17/2005, 2004, 2004 Pneumococcal Vaccine: Pediatrics (0 to 5 Years) and At-Risk Patients (6 to 64 Years) Aged Out 03/28/2006, 01/17/2005, 2004, Additional history exists No longer eligible based on patient's age to complete this topic Hepatitis A Vaccines Completed 02/13/2007, 03/28/20 HIB Vaccines Completed 10/13/2008, 03/02, 01/17/2005, Additional history exists IPV Vaccines Completed 10/13/2008, 12/30, 2004, Additional history exists Varicella Vaccines Completed 11/16/2009, 08/01/2005 Meningococcal Vaccine Completed 07/19/2020, 017 Rotavirus Vaccines Aged Out No longer eligible based on patient's age to complete this topic [id number] 12:11:47 Diagnosis Abnormal foot finding - Bella sargent [facility] [id number] 12:11:46* Sheila Guerrero, DPM - 07/29/2024 11:20 AM CDT CHIEF COMPLAINT S/P LEFT 5TH METATARSAL HEAD FOREIGN BODY EXTRACTION, JULY 15, 2024 HISTORY OF PRESENT ILLNESS: Patient states pain is well controlled without medication Patient has been taking antibiotics 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 Patient denies nausea, vomiting, fever, chills, cough, shortness of breath, chest pain, and calf pain PHYSICAL EXAM OF LOWER EXTREMITY: Vascular: (-) edema, BILATERAL lower extremity (-) ecchymosis (-) erythema (+) 2/4 pedal pulses, bilateral (+) Capillary Refill time: within normal limits (-) varicosities (+) pedal hair growth Neurological: (+) sensation with 5.07 [place] Ethel monofilament examination to the most distal lower extremity (-) tinel's sign (-) clonus present. Dermatological: (+) sutures intact, (+) skin margins well aligned after suture removed (-) signs of infection, (-) open wounds, (-) macerations, (-) ischemic tissue, (-) abscess, (-) drainage, (-) mal odor (-) other primary or secondary lesions (+) normal temperature when compared to contralateral limb (+) normal color, tugor, and elasticity. Musculoskeletal: (+) good visual correction from surgical procedure (-) pain on palpation at the surgical site, 5/5 muscle strength to extrinsic pedal muscle groups (-) evidence of compartment syndrome, (-) evidence of deep vein thrombosis ASSESSMENT: S/P LEFT 5TH METATARSAL HEAD FOREIGN BODY EXTRACTION, JULY 15, 2024 TREATMENT PLAN: - Extensive visit WITH BOYFRIEND discussing possible post-op complications - surgical site healing as expected - antibiotics - continue as directed - Pain - Well controlled - Wound - apply vitamin-E for scar reduction -suture- removed 07/29/2024 without complications, thus no further bandage indicated - culture- pending results - pathology-pending results - Dressing - instructions provided - Weight bearing - as tolerated in well protective shoes - DVT prophylaxis - AGAIN educated about non-weight bearing exercises - work-no further restrictions, may return as needed - Return 4 weeks for routine surgical postop eval Patient advised to report to my clinic or the emergency room immediately with any questions or concerns. Discussion: A detailed discussion was provided to the patient with specific reference to etiology, pathology, alternate treatment options, and prognosis. All risks and complications (including side effects) with each treatment/medication alternative were outlined in detail including but not limited to: Pain, swelling, numbness, loss of function, loss of limb, bleeding, hematoma, scarring, failure to relieve condition, surgery, additional/revisional surgery, reflex sympathetic dystrophy, complex regional pain syndrome, reoccurrence of deformity, joint stiffness, flail toe, bone and/or soft tissue infection, blood clots, pulmonary embolism, possible , delayed or non-healing. X-rays, graphs and drawings were all used to assist with patient comprehension when appropriate. All patients questions were answered and stated they fully understood. No guarantee as to results or outcome of treatment was made. I have discussed with the patient or legally responsible person prior to obtaining consent: the risks, potential benefits and drawbacks, significant alternatives, potential for problems related to recuperation, likelihood of success, and possible results of non-treatment, and the patient or thelegally responsible person has agreed to proceed. [facility] [id number] 12:11:46Upcoming Encounters Health Maintenance Due Date Last Done Comments HPV Vaccines (2 - 2-dose series) 05/17/2017 11/14/2016 Annual Physical 08/10/2021 08/10/2020 Influenza Vaccine (Season Ended) 2024 01/20/2021, 01/11/2019 DTaP/Tdap/Td Vaccines (7 - Td or Tdap) 11/14/2026 11/14/2016, 10/13/2008, 03/28/2006, Additional history exists Respiratory Syncytial Virus (RSV) Adult Series (1 - 1-dose 75+ series) 07/13/2079 Hepatitis B Vaccines Completed 01/17/2005, 2004, 2004 Pneumococcal Vaccine: Pediatrics (0 to 5 Years) and At-Risk Patients (6 to 64 Years) Aged Out 03/28/2006, 01/17/2005, 2004, Additional history exists No longer eligible based on patient's age to complete this topic Hepatitis A Vaccines Completed 02/13/2007, 03/28/20 HIB Vaccines Completed 10/13/2008, 03/02, 01/17/2005, Additional history exists IPV Vaccines Completed 10/13/2008, 12/30, 2004, Additional history exists Varicella Vaccines Completed 11/16/2009, 08/01/2005 Meningococcal Vaccine Completed 07/19/2020, 017 Rotavirus Vaccines Aged Out No longer eligible based on patient's age to complete this topic [facility] HospitalNkraejp3164-11-28 12:11:46 Diagnosis Abnormal foot finding - Prim arie [facility] HospitalDhewayb2748-86-74 11:09:26* Sheila Guerrero, DPM - 07/22/2024 10:20 AM CDT CHIEF COMPLAINT S/P LEFT 5TH METATARSAL HEAD FOREIGN BODY EXTRACTION, JULY 15, 2024 HISTORY OF PRESENT ILLNESS: Patient states pain is well controlled with medication Patient has been taking antibiotics Patient has been keeping the foot elevated Patient has kept dressing clean dry and intact Patient denies local and systemic signs of infection. Patient denies nausea, vomiting, fever, chills, cough, shortness of breath, chest pain, and calf pain PHYSICAL EXAM OF LOWER EXTREMITY: Vascular: (-) edema, BILATERAL lower extremity (-) ecchymosis (-) erythema (+) 2/4 pedal pulses, bilateral (+) Capillary Refill time: within normal limits (-) varicosities (+) pedal hair growth Neurological: (+) sensation with 5.07 [place] Ethel monofilament examination to the most distal lower extremity (-) tinel's sign (-) clonus present. Dermatological: (+) sutures intact, (+) skin margins well aligned (-) signs of infection, (-) open wounds, (-) macerations, (-) ischemic tissue, (-) abscess, (-) drainage, (-) mal odor (-) other primary or secondary lesions (+) normal temperature when compared to contralateral limb (+) normal color, tugor, and elasticity. Musculoskeletal: (+) good visual correction from surgical procedure (+) mild pain on palpation at the surgical site, as expected 5/5 muscle strength to extrinsic pedal muscle groups (-) evidence of compartment syndrome, (-) evidence of deep vein thrombosis ASSESSMENT: S/P LEFT 5TH METATARSAL HEAD FOREIGN BODY EXTRACTION, JULY 15, 2024 TREATMENT PLAN: - Extensive visit WITH GRANDMOTHER discussing possible post-op complications - surgical site healing as expected - antibiotics - continue as directed - Pain - Well controlled - Wound - Surgical site cleansed in a sterile fashion, applied antibiotic medication, dry sterile dressing, and fracture boot - Dressing - instructions provided - Weight bearing - NONE, continue with Durable Medical Equipment, patient states no complications with mobilization using devices - DVT prophylaxis - AGAIN educated about non-weight bearing exercises - Return 1 week. Patient advised to report to my clinic or the emergency room immediately with any questions or concerns. Discussion: A detailed discussion was provided to the patient with specific reference to etiology, pathology, alternate treatment options, and prognosis. All risks and complications (including side effects) with each treatment/medication alternative were outlined in detail including but not limited to: Pain, swelling, numbness, loss of function, loss of limb, bleeding, hematoma, scarring, failure to relieve condition, surgery, additional/revisional surgery, reflex sympathetic dystrophy, complex regional pain syndrome, reoccurrence of deformity, joint stiffness, flail toe, bone and/or soft tissue infection, blood clots, pulmonary embolism, possible , delayed or non-healing. X-rays, graphs and drawings were all used to assist with patient comprehension when appropriate. All patients questions were answered and stated they fully understood. No guarantee as to results or outcome of treatment was made. I have discussed with the patient or legally responsible person prior to obtaining consent: the risks, potential benefits and drawbacks, significant alternatives, potential for problems related to recuperation, likelihood of success, and possible results of non-treatment, and the patient or thelegally responsible person has agreed to proceed. [facility] [id number] 11:09:26 [place] [id number] 11:09:26 Diagnosis Abnormal foot finding - Prim arie [facility] HospitalYpkptuo1412-22-26 11:09:25* Sheila Guerrero DPM - 07/22/2024 10:20 AM CDT CHIEF COMPLAINT S/P LEFT 5TH METATARSAL HEAD FOREIGN BODY EXTRACTION, JULY 15, 2024 HISTORY OF PRESENT ILLNESS: Patient states pain is well controlled with medication Patient has been taking antibiotics Patient has been keeping the foot elevated Patient has kept dressing clean dry and intact Patient denies local and systemic signs of infection. Patient denies nausea, vomiting, fever, chills, cough, shortness of breath, chest pain, and calf pain PHYSICAL EXAM OF LOWER EXTREMITY: Vascular: (-) edema, BILATERAL lower extremity (-) ecchymosis (-) erythema (+) 2/4 pedal pulses, bilateral (+) Capillary Refill time: within normal limits (-) varicosities (+) pedal hair growth Neurological: (+) sensation with 5.07 [place] Ethel monofilament examination to the most distal lower extremity (-) tinel's sign (-) clonus present. Dermatological: (+) sutures intact, (+) skin margins well aligned (-) signs of infection, (-) open wounds, (-) macerations, (-) ischemic tissue, (-) abscess, (-) drainage, (-) mal odor (-) other primary or secondary lesions (+) normal temperature when compared to contralateral limb (+) normal color, tugor, and elasticity. Musculoskeletal: (+) good visual correction from surgical procedure (+) mild pain on palpation at the surgical site, as expected 5/5 muscle strength to extrinsic pedal muscle groups (-) evidence of compartment syndrome, (-) evidence of deep vein thrombosis ASSESSMENT: S/P LEFT 5TH METATARSAL HEAD FOREIGN BODY EXTRACTION, JULY 15, 2024 TREATMENT PLAN: - Extensive visit WITH GRANDMOTHER discussing possible post-op complications - surgical site healing as expected - antibiotics - continue as directed - Pain - Well controlled - Wound - Surgical site cleansed in a sterile fashion, applied antibiotic medication, dry sterile dressing, and fracture boot - Dressing - instructions provided - Weight bearing - NONE, continue with Durable Medical Equipment, patient states no complications with mobilization using devices - DVT prophylaxis - AGAIN educated about non-weight bearing exercises - Return 1 week. Patient advised to report to my clinic or the emergency room immediately with any questions or concerns. Discussion: A detailed discussion was provided to the patient with specific reference to etiology, pathology, alternate treatment options, and prognosis. All risks and complications (including side effects) with each treatment/medication alternative were outlined in detail including but not limited to: Pain, swelling, numbness, loss of function, loss of limb, bleeding, hematoma, scarring, failure to relieve condition, surgery, additional/revisional surgery, reflex sympathetic dystrophy, complex regional pain syndrome, reoccurrence of deformity, joint stiffness, flail toe, bone and/or soft tissue infection, blood clots, pulmonary embolism, possible , delayed or non-healing. X-rays, graphs and drawings were all used to assist with patient comprehension when appropriate. All patients questions were answered and stated they fully understood. No guarantee as to results or outcome of treatment was made. I have discussed with the patient or legally responsible person prior to obtaining consent: the risks, potential benefits and drawbacks, significant alternatives, potential for problems related to recuperation, likelihood of success, and possible results of non-treatment, and the patient or thelegally responsible person has agreed to proceed. [id number] 11:09:25 [facility] HospitalEoktnld6990-77-30 11:09:25 Diagnosis Abnormal foot finding - Prim arie [facility] HospitalOeiyaad2779-93-11 15:32:49* Sheila Guerrero DPM - 07/15/2024 7:00 AM CDT OPERATIVE REPORT MEDICAL RECORD NUMBER OF PATIENT AT SURGICAL FACILITY: [id number] FACILITY: [facility] Address: [address] [place] [address], [place] [address] SURGEON: Dr. Sheila Guerrero [employer] PANELS: none PREOPERATIVE DIAGNOSIS: 1. LEFT foot lateral 5th metatarsal head painful deep foreign body (glass) 2. LEFT foot granuloma POSTOPERATIVE DIAGNOSIS: 1. LEFT foot lateral 5th metatarsal head painful deep foreign body (glass) 2. LEFT foot granuloma PROCEDURE: 1. LEFT foot incision and drainage with debridement through fascia 2. LEFT foot removal of deep foreign body 3. LEFT foot complex local rotational advancement flap wound closure ( 3 x 1 cm) 4. LEFT lower extremity intraoperative injection 5. LEFT lower extremity application of cast 6. Intraoperative fluoroscopy ANESTHESIA: General intubation HEMOSTASIS: Pneumatic ankle tourniquet at 250 mmHg for 29 minutes ESTIMATED BLOOD LOSS: 5 cc MATERIALS: 1. 4-0 Monocryl (with antibiotic), 2-0 nylon 2. Betadine-soaked Adaptic, dry sterile dressing, loosely wrapped Janes bandage 3. Lower extremity cast with the use of Unna boot for stabilization and edema control SPECIMENS: 1. Culture, LEFT foot wound 2. Foreign body, for permanent pathological evaluation INJECTION: 1. Intraoperative injection of 20 cc of 0.5% Marcaine plain CONDITION: STABLE COMPLICATIONS: NONE OPERATIVE FINDINGS: 1. Deep foreign body was able to be removed successfully, confirmed with pre and postoperative x-rays 2. Due to the irregular wound created since necessary to excise the granuloma, a complex local rotational advancement flap wound closure was necessary to allow for the skin to be reapproximated without significant tension 3. Careful attention was paid to avoid iatrogenic injury to the adjacent neurovascular and tendinous structures INDICATION FOR PROCEDURE: The patient had developed a granuloma from unknown cause. Patient had x-rays obtained on an outpatient basis finding a foreign body. Attempted outpatient extraction was unsuccessful. The patient requested to have the foreign body removed at a surgical center. The patient had conducted extensive research on both conservative and surgical options, which was discussed in great detail prior to the procedure. The patient had a thorough understanding of the surgical plan after extensively discussing conservative and surgical options. The patient agreed to surgical intervention to remove the painful deep hardware after understanding the risks, benefits, complications, alternatives, expected healing times. Many of which were discussed in great detail were but not limited to: Pain, swelling, numbness, loss of function, loss of limb, loss of life, bleeding, blood clot, embolism, scarring, infection, ischemia, delayed/non-healing, recurrence, over-correction, under correction, arthritis, biomechanical abnormalities, tendon rupture, need for further surgery, reaction to implants, inability to fully remove foreign body. PROCEDURE IN DETAIL: Prior to the patient being brought to the operative room, the patient was consented, had a thorough understanding of the procedure, had a thorough understanding of all complications, benefits, risks, alternatives, expected healing times, the patient had all questions answered, and no guarantees were given. A non-removable skin marker was used to label the planned surgical site and was confirmed with the patient. The patient was then brought to the operative room placed in a supine position under general intubation. A time-out was taken to ensure the correct patient, limb, and surgical procedure. The marked lower extremity was prepped and draped in a normal sterile fashion. A Esmarch was utilized and the tourniquet was inflated. Using multiple angles with intraoperative fluoroscopy, the foreign body was located. Using a #15 scalpel blade, the incision was made in an elliptical-type fashion from proximal to distal on the dorsal lateral aspect of the 5th metatarsal head. The dissection was then carried through the deep tissues to locate the foreign body using blunt dissection. Conducted incision and drainage with debridement through fascia, there are no deep signs of infection with no purulence. The foreign body was sent off the field to pathology. A culture specimen was obtained and sent to microbiology. The wound was copiously irrigated with 3 liters of saline. Due to excision of the irregular granuloma, a complex wound closure with local rotational advancement flap was necessary , measuring 3 x 1 cm. The tissues were reapproximated in layers without significant tension, using 4-0 Monocryl mixed with antibiotic within the deep tissues and 2-0 nylon for the skin. The surgical site was then injected local anesthesia. Aspiration of the syringe was conducted in order to ensure no inadvertent injection into the circulatory system. The tourniquet was deflated. After confirmation that all the surgical counts were correct, the wound was then dressed with Betadine-soaked Adaptic, dry sterile dressing, loosely wrapped Janes bandage. A lower extremity cast with the use of Unna boot was applied for edema control and stabilization. The patient then recovered from anesthesia and left the operating room to the recovery room with vital signs stable and vascular status intact as noted by immediate hyperemia to this distal segment of the lower extremity. The patient tolerated the procedure and anesthesia well without complications. The primary attending doctor was scrubbed and performed the entire procedure. After a period of monitoring/observation the patient would be transferred from the post-anesthesia care unit and discharged to home. The patient has postoperative antibiotics to be taken on schedule. The patient has postoperative pain medication to be taken as needed with food. The patient is to be nonweightbearing to the surgical limb using a fracture boot, and the patient was able to comply with directions as seen in the office prior to the procedure. The patient was educated on blood clot prophylaxis with nonweightbearing exercises, and the patient was able to comply with directions as seen in the office prior to the procedure. The patient must make a follow-up appointment with me in the office within 1 week. If the patient has any questions or concerns can call my office for a sooner appointment or report immediately to the emergency room. [address] [facility] [id number] 15:32:49Upcoming Encounters Health Maintenance Due Date Last Done Comments HPV Vaccines (2 - 2-dose series) 05/17/2017 11/14/2016 Annual Physical 08/10/2021 08/10/2020 Influenza Vaccine (Season Ended) 2024 01/20/2021, 01/11/2019 DTaP/Tdap/Td Vaccines (7 - Td or Tdap) 11/14/2026 11/14/2016, 10/13/2008, 03/28/2006, Additional history exists Respiratory Syncytial Virus (RSV) Adult Series (1 - 1-dose 75+ series) 07/13/2079 Hepatitis B Vaccines Completed 01/17/2005, 2004, 2004 Pneumococcal Vaccine: Pediatrics (0 to 5 Years) and At-Risk Patients (6 to 64 Years) Aged Out 03/28/2006, 01/17/2005, 2004, Additional history exists No longer eligible based on patient's age to complete this topic Hepatitis A Vaccines Completed 02/13/2007, 03/28/20 HIB Vaccines Completed 10/13/2008, 03/02, 01/17/2005, Additional history exists IPV Vaccines Completed 10/13/2008, 12/30, 2004, Additional history exists Varicella Vaccines Completed 11/16/2009, 08/01/2005 Meningococcal Vaccine Completed 07/19/2020, 017 Rotavirus Vaccines Aged Out No longer eligible based on patient's age to complete this topic [id number] 15:32:49 Diagnosis Abnormal foot finding - Prim arie [id number] 11:56:47* Sheila Guerrero, DPM - 06/17/2024 11:00 AM CDT CHIEF COMPLAINT FOREIGN BODY, LEFT DORSAL LATERAL 5TH METATARSAL HEAD HISTORY OF PRESENT ILLNESS: Patient returns for surgical planning after conducting extensive research on both conservative and surgical options Patient states continued pain at the left dorsal lateral 5th metatarsal head Patient requesting to proceed with surgical procedure for debridement and attempted foreign body extraction Patient currently denies infection, injury, open wounds Patient states pain currently rated 2/10 on palpation, left dorsal lateral 5th metatarsal head --- Patient developed skin abrasion with infection, starting approximately January 2024 Patient states continued soft tissue mass and therefore requesting surgical excision with biopsy Patient denies any previous events with similar symptoms or soft tissue masses, throughout the entire body Patient denies soft tissue mass lesions or cancer in the family Patient denies infection, injury, wounds Patient states pain currently rated 2/10 on palpation, left dorsal lateral 5th metatarsal head soft tissue mass PHYSICAL EXAM OF THE LOWER EXTREMITY: Vascular (-) edema (-) ecchymosis (-) erythema Dorsal pedis pulse, bilateral - 2/4 Posterior tibial pulse, bilateral - 2/4 Capillary Refill time: within normal limits (+) varicosities (-) pedal hair growth Neurological (+) sensation with 5.07 [place] Ethel monofilament examination to the most distal lower extremity (-) clonus present (-) tinel's sign Dermatological (+) fluctuant soft tissue mass, measures approximately 0.5 x 0.5 cm, left dorsal lateral 5th metatarsal head (+) translucent with direct light (-) signs of infection (-) open wounds (-) macerations (-) abscess (-) ischemic tissue (-) other primary or secondary lesions (+) normal temperature when compared to contralateral limb (+) normal color, tugor, and elasticity Musculoskeletal (+) mild pain on palpation of the mass (-) gross osseous abnormalities 5/5 muscle strength to extrinsic pedal muscle groups (-) evidence of compartment syndrome (-) evidence of deep vein thrombosis X-rays left foot 06/12/2024: (+) Foreign body, dorsal lateral 5th metatarsal head (-) osteomyelitis (-) fracture (-) gas MRI left foot 06/12/2024: (+) Foreign body, dorsal lateral 5th metatarsal head (-) osteomyelitis (-) fracture (-) gas ASSESSMENT: FOREIGN BODY, LEFT DORSAL LATERAL 5TH METATARSAL HEAD TREATMENT PLAN: - Extensive visit discussing possible pedal complications and differential diagnoses associated with Soft tissue mass - xrays - reviewed - MRI - reviewed - weight bearing - shoe gear modifications and offloading. - aspiration /injection -patient defers - ANTIBIOTICS - PRESCRIBED KEFLEX, for postop prophylaxis - PAIN - PRESCRIBED NORCO, for postop prophylaxis, patient advised to use appropriate medication for appropriate pain level - WEIGHT-BEARING STATUS - NONE after surgery, in fracture boot, DISPENSED, patient able to comply with nonweightbearing directions as seen in the office - DVT PROPHYLAXIS - nonweightbearing exercises, patient able to comply with directions is seen in the office - CONSENT - discussed in great detail, the patient agrees with the surgical plan after thorough understanding of the risks, complications, benefits, alternatives, expected healing times for both conservative and surgical options - PREOP LABS - reviewed - surgery - incision and drainage with debridement, attempted foreign body extraction, left dorsal lateral 5th metatarsal head - Return 1 week after surgery Patient advised to report to my clinic or the emergency room immediately with any questions or concerns. Patient Instructions: Discussion: A detailed discussion was provided to the patient with specific reference to etiology, pathology,alternate treatment options, and prognosis. All risks and complications (including side effects) with each treatment/medication alternative were outlined in detail including but not limited to: Pain, swelling, numbness,loss of function, loss of limb, bleeding, hematoma, scarring, failure to relieve condition, surgery, additional/revisional surgery, reflex sympathetic dystrophy, complex regional pain syndrome, reoccurrence of deformity, joint stiffness, flail toe, bone and/or soft tissue infection, blood clots, pulmonary embolism, possible , delayed or non-healing. X-rays, graphs and drawings were all used to assist with patient comprehension when appropriate. All patients questions were answered and stated they fully understood. No guarantee as to results or outcome of treatment was made. I have discussed with the patient or legally responsible person prior to obtaining consent: the risks, potential benefits and drawbacks, significant alternatives, potential for problems related to recuperation, likelihood of success, and possible results of non-treatment, and the patient or the legally responsible person has agreed to proceed. [id number] 11:56:47 [place] [id number] 11:56:47 Diagnosis Foreign body in left foot, s ubsequent encounter - Primary Abnormal foot finding [place] [id number] 11:56:46* Sheila Guerrero DPM - 06/17/2024 11:00 AM CDT CHIEF COMPLAINT FOREIGN BODY, LEFT DORSAL LATERAL 5TH METATARSAL HEAD HISTORY OF PRESENT ILLNESS: Patient returns for surgical planning after conducting extensive research on both conservative and surgical options Patient states continued pain at the left dorsal lateral 5th metatarsal head Patient requesting to proceed with surgical procedure for debridement and attempted foreign body extraction Patient currently denies infection, injury, open wounds Patient states pain currently rated 2/10 on palpation, left dorsal lateral 5th metatarsal head --- Patient developed skin abrasion with infection, starting approximately January 2024 Patient states continued soft tissue mass and therefore requesting surgical excision with biopsy Patient denies any previous events with similar symptoms or soft tissue masses, throughout the entire body Patient denies soft tissue mass lesions or cancer in the family Patient denies infection, injury, wounds Patient states pain currently rated 2/10 on palpation, left dorsal lateral 5th metatarsal head soft tissue mass PHYSICAL EXAM OF THE LOWER EXTREMITY: Vascular (-) edema (-) ecchymosis (-) erythema Dorsal pedis pulse, bilateral - 2/4 Posterior tibial pulse, bilateral - 2/4 Capillary Refill time: within normal limits (+) varicosities (-) pedal hair growth Neurological (+) sensation with 5.07 [place] Ethel monofilament examination to the most distal lower extremity (-) clonus present (-) tinel's sign Dermatological (+) fluctuant soft tissue mass, measures approximately 0.5 x 0.5 cm, left dorsal lateral 5th metatarsal head (+) translucent with direct light (-) signs of infection (-) open wounds (-) macerations (-) abscess (-) ischemic tissue (-) other primary or secondary lesions (+) normal temperature when compared to contralateral limb (+) normal color, tugor, and elasticity Musculoskeletal (+) mild pain on palpation of the mass (-) gross osseous abnormalities 5/5 muscle strength to extrinsic pedal muscle groups (-) evidence of compartment syndrome (-) evidence of deep vein thrombosis X-rays left foot 06/12/2024: (+) Foreign body, dorsal lateral 5th metatarsal head (-) osteomyelitis (-) fracture (-) gas MRI left foot 06/12/2024: (+) Foreign body, dorsal lateral 5th metatarsal head (-) osteomyelitis (-) fracture (-) gas ASSESSMENT: FOREIGN BODY, LEFT DORSAL LATERAL 5TH METATARSAL HEAD TREATMENT PLAN: - Extensive visit discussing possible pedal complications and differential diagnoses associated with Soft tissue mass - xrays - reviewed - MRI - reviewed - weight bearing - shoe gear modifications and offloading. - aspiration /injection -patient defers - ANTIBIOTICS - PRESCRIBED KEFLEX, for postop prophylaxis - PAIN - PRESCRIBED NORCO, for postop prophylaxis, patient advised to use appropriate medication for appropriate pain level - WEIGHT-BEARING STATUS - NONE after surgery, in fracture boot, DISPENSED, patient able to comply with nonweightbearing directions as seen in the office - DVT PROPHYLAXIS - nonweightbearing exercises, patient able to comply with directions is seen in the office - CONSENT - discussed in great detail, the patient agrees with the surgical plan after thorough understanding of the risks, complications, benefits, alternatives, expected healing times for both conservative and surgical options - PREOP LABS - reviewed - surgery - incision and drainage with debridement, attempted foreign body extraction, left dorsal lateral 5th metatarsal head - Return 1 week after surgery Patient advised to report to my clinic or the emergency room immediately with any questions or concerns. Patient Instructions: Discussion: A detailed discussion was provided to the patient with specific reference to etiology, pathology,alternate treatment options, and prognosis. All risks and complications (including side effects) with each treatment/medication alternative were outlined in detail including but not limited to: Pain, swelling, numbness,loss of function, loss of limb, bleeding, hematoma, scarring, failure to relieve condition, surgery, additional/revisional surgery, reflex sympathetic dystrophy, complex regional pain syndrome, reoccurrence of deformity, joint stiffness, flail toe, bone and/or soft tissue infection, blood clots, pulmonary embolism, possible , delayed or non-healing. X-rays, graphs and drawings were all used to assist with patient comprehension when appropriate. All patients questions were answered and stated they fully understood. No guarantee as to results or outcome of treatment was made. I have discussed with the patient or legally responsible person prior to obtaining consent: the risks, potential benefits and drawbacks, significant alternatives, potential for problems related to recuperation, likelihood of success, and possible results of non-treatment, and the patient or the legally responsible person has agreed to proceed. [id number] 11:56:[address] [id number] 11:56:46 Diagnosis Foreign body in left foot, s ubsequent encounter - Primary Abnormal foot finding [id number] 01:27:57Upcoming Encounters Health Maintenance Due Date Last Done Comments HPV Vaccines (2 - 2-dose series) 05/17/2017 11/14/2016 Annual Physical 08/10/2021 08/10/2020 Influenza Vaccine (#1) 2023 01/20/2021, 2018 DTaP/Tdap/Td Vaccines (7 - Td or Tdap) 11/14/2026 11/14/2016, 10/13/2008, 03/28/2006, Additional history exists Hepatitis B Vaccines Completed 01/17/2005, 2004, 2004 Pneumococcal Vaccine: Pediatrics (0 to 5 Years) and At-Risk Patients (6 to 64 Years) Aged Out 03/28/2006, 01/17/2005, 2004, Additional history exists No longer eligible based on patient's age to complete this topic Hepatitis A Vaccines Completed 02/13/2007, 03/28/20 06 HIB Vaccines Completed 10/13/2008, 03/02, 01/17/2005, Additional history exists IPV Vaccines Completed 10/13/2008, 12/30, 2004, Additional history exists Varicella Vaccines Completed 11/16/2009, 08/01/2005 Meningococcal Vaccine Completed 07/19/2020, 017 Rotavirus Vaccines Aged Out No longer eligible based on patient's age to complete this topic [id number] 10:48:46Upcoming Encounters Health Maintenance Due Date Last Done Comments HPV Vaccines (2 - 2-dose series) 05/17/2017 11/14/2016 Annual Physical 08/10/2021 08/10/2020 Influenza Vaccine (#1) 2023 01/20/2021, 2018 DTaP/Tdap/Td Vaccines (7 - Td or Tdap) 11/14/2026 11/14/2016, 10/13/2008, 03/28/2006, Additional history exists Hepatitis B Vaccines Completed 01/17/2005, 2004, 2004 Pneumococcal Vaccine: Pediatrics (0 to 5 Years) and At-Risk Patients (6 to 64 Years) Aged Out 03/28/2006, 01/17/2005, 2004, Additional history exists No longer eligible based on patient's age to complete this topic Hepatitis A Vaccines Completed 02/13/2007, 03/28/20 06 HIB Vaccines Completed 10/13/2008, 03/02, 01/17/2005, Additional history exists IPV Vaccines Completed 10/13/2008, 12/30, 2004, Additional history exists Varicella Vaccines Completed 11/16/2009, 08/01/2005 Meningococcal Vaccine Completed 07/19/2020, 017 Rotavirus Vaccines Aged Out No longer eligible based on patient's age to complete this topic [facility] [id number] 10:48:46 Diagnosis Abnormal foot finding - Bella sargent [facility] [id number] 10:48:46* Sheila Guerrero, ARIELLE - 06/08/2024 9:50 AM CDT CHIEF COMPLAINT SOFT TISSUE MASS, LEFT DORSAL LATERAL 5TH METATARSAL HEAD HISTORY OF PRESENT ILLNESS: Patient rigidly with skin abrasion with infection, starting approximately January 2024 Patient seen at local urgent care, provided antibiotic and advised to follow-up with specialist, April 2024 Patient states continued soft tissue mass and therefore requesting surgical excision with biopsy Patient denies any previous events with similar symptoms or soft tissue masses, throughout the entire body Patient denies soft tissue mass lesions or cancer in the family Patient denies infection, injury, wounds Patient states pain currently rated 2/10 on palpation, left dorsal lateral 5th metatarsal head soft tissue mass PHYSICAL EXAM OF THE LOWER EXTREMITY: Vascular (-) edema (-) ecchymosis (-) erythema Dorsal pedis pulse, bilateral - 2/4 Posterior tibial pulse, bilateral - 2/4 Capillary Refill time: within normal limits (+) varicosities (-) pedal hair growth Neurological (+) sensation with 5.07 [place]thel monofilament examination to the most distal lower extremity (-) clonus present (-) tinel's sign Dermatological (+) fluctuant soft tissue mass, measures approximately 0.5 x 0.5 cm, left dorsal lateral 5th metatarsal head (+) translucent with direct light (-) signs of infection (-) open wounds (-) macerations (-) abscess (-) ischemic tissue (-) other primary or secondary lesions (+) normal temperature when compared to contralateral limb (+) normal color, tugor, and elasticity Musculoskeletal (+) mild pain on palpation of the mass (-) gross osseous abnormalities 5/5 muscle strength to extrinsic pedal muscle groups (-) evidence of compartment syndrome (-) evidence of deep vein thrombosis ASSESSMENT: SOFT TISSUE MASS, LEFT DORSAL LATERAL 5TH METATARSAL HEAD TREATMENT PLAN: - Extensive visit discussing possible pedal complications and differential diagnoses associated with Soft tissue mass - xrays - ORDERED - MRI - ORDERED - weight bearing - shoe gear modifications and offloading. - aspiration /injection -patient defers - PREOP LABS -ORDERED 06/08/2024 - surgery- soft tissue mass excisional biopsy, left dorsal lateral 5th metatarsal head - Return 2 weeks for imaging review and surgical excisional biopsy Patient advised to report to my clinic or the emergency room immediately with any questions or concerns. Patient Instructions: Discussion: A detailed discussion was provided to the patient with specific reference to etiology, pathology,alternate treatment options, and prognosis. All risks and complications (including side effects) with each treatment/medication alternative were outlined in detail including but not limited to: Pain, swelling, numbness,loss of function, loss of limb, bleeding, hematoma, scarring, failure to relieve condition, surgery, additional/revisional surgery, reflex sympathetic dystrophy, complex regional pain syndrome, reoccurrence of deformity, joint stiffness, flail toe, bone and/or soft tissue infection, blood clots, pulmonary embolism, possible , delayed or non-healing. X-rays, graphs and drawings were all used to assist with patient comprehension when appropriate. All patients questions were answered and stated they fully understood. No guarantee as to results or outcome of treatment was made. I have discussed with the patient or legally responsible person prior to obtaining consent: the risks, potential benefits and drawbacks, significant alternatives, potential for problems related to recuperation, likelihood of success, and possible results of non-treatment, and the patient or the legally responsible person has agreed to proceed. [facility]2024-12-04 11:40:00 Regarding: inflamed and swollen foot ----- Message from Patient Graphic User Interface Designer sent at 03/04/2024 11:39 AM ENROLLMENT COUNSELOR ----- Irina Galarza is a 18 year old female Calling in stating she cut her foot a month ago and experiencing tender to the touch on her foot and stating it is currently inflamed and swollen. N Palomo [facility] [id number] 11:40:00 Adult Triage Assessment Last Clinic Visit: NA Primary Symptom: foot pain Onset / Duration: 1 month ago Location / Description: L foot Pain / Severity: 3-4 Associated Symptoms: swelling, redness Fever / Method: denies Hydration: eating and drinking normally, denies problems with urination Treatment so far: epsiom salt soak a couple days ago Effect on ADL's: some LMP: last month Pre-existing condition / Immunocompromised: CHAVO Galarza is a 18 year old female whose calling for advice with foot pain. Pt reports about 1 month ago she cut her foot. Pt reports cut has healed but still has swelling and discoloration to area. Pt reports injury is to L foot on side by 5th mid toe. Pt denies any new injuries since then. Pt denies any wounds or drainage from area. Assessment and triage completed per protocol. Patient verbalizes understanding and agrees to follow plan of care. Pt verbalized understanding of need for eval within 24 hrs and [place] do [place] [facility] [place] Pt had no further questions or concerns. Call back advice given and pt verbalized understanding. Bobbi Palomo RN Reason for Disposition [1] Redness of the skin AND [2] no fever Protocols used: Foot [id number] [facility]
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
[2024-12-23] MEDS ORDERED: IBUPROFEN 400 MG TAB ONE (19:32)
[2024-12-23] MEDS ORDERED: HYDROCODONE/APAP 5/325 MG TAB ONE (19:33)
[2024-12-23 19:58] VITALS: BP 124/80; TEMP 98; O2SAT 100
== END 2024-12-23 19:35 | disposition home or self-care (01) ==
LOC: ER 17:02
DX: R51.9 Headache, unspecified (principal); M79.622 Pain in left upper arm; V49.40XA Driver injured in collision with unspecified motor vehicles in traffic accident, initial encounter
CPT/HCPCS: 70450; 72125; 99283